=== PATIENT | female | born 1960 | race Caucasian/White ===

== ENCOUNTER 2021-09-08 22:00 | Inpatient (IN) | payer MEDICAID, OTHER ==
[~2021-09-08] VITALS: Ht 160 cm; Wt 78.0 kg
[2021-09-08] MEDS ORDERED: IPRATROPIUM BROM 0.5 MG/2.5ML INH SOL NEB ONE (22:45)
[2021-09-08] MEDS ORDERED: ALBUTEROL SULF 2.5 MG/0.5ML(0.5%) NEB SOLN NEB ONE (22:45)
[2021-09-08] MEDS ORDERED: methylPREDNISolone SOD SUCC 125 MG/2 ML VL IV ONE (23:00)
[2021-09-08 23:23] LABS: Basophils # (auto) 0.1 10 ^3/uL (0-0.2); Basophils % (auto) 0.4 % (0.0-2.0); Eosinophils # (auto) 0.1 10 ^3/uL (0-0.8); Eosinophils % (auto) 0.3 % (0.0-7.0); Hematocrit 34.2 % (36.0-46.0); Lymphocytes # (auto) 1.8 10 ^3/uL (0.4-5.4); Lymphocytes % (auto) 6.8 % (10.0-50.0); Mean Corpuscular Hemoglobin 27.7 pg (28.0-32.0); Mean Corpuscular Hgb Conc. 32.2 g/dL (32.0-36.0); Mean Corpuscular Volume 86.1 fL (80.0-100.0); Monocytes # (auto) 1.7 10 ^3/uL (0-1.3); Monocytes % (auto) 6.4 % (0.0-12.0); Neutrophils # (auto) 23.1 10 ^3/uL (1.6-8.6); Neutrophils % (auto) 86.1 % (37.0-80.0); Red Blood Cells 3.97 10^6/uL (4.0-5.20); Red Cell Distribution Width 15.7 % (11.8-14.3); White Blood Cell 26.8 10^3/uL (4.4-10.8)
[2021-09-08 23:38] LABS: Alanine Aminotransferase 24 U/L (13-56); Albumin 2.6 g/dL (3.4-5.0); Aspartate Aminotransferase 18 U/L (15-37); Blood Urea Nitrogen 23 mg/dL (7-18); Calcium 8.8 mg/dL (8.5-10.1); Chloride 92 mmol/L (98-107); GFR African American 161 mL/min; GFR Non-African American 133 mL/min; Glucose 143 mg/dL (74-106); Magnesium 2.5 mg/dL (1.6-2.6); Potassium 4.2 mmol/L (3.5-5.1); Sodium 143 mmol/L (136-145)
[2021-09-08 23:43] LABS: Alkaline Phosphatase 79 U/L (45-117); Bilirubin, Total 0.2 mg/dL (0.2-1.0); Total Protein 6.7 g/dL (6.4-8.2)
[2021-09-09] VITALS (10 sets, daily range): BP systolic 98–120; BP diastolic 43–76
[2021-09-09 00:03] LABS: Anion Gap 5.99999 (5-15); Carbon Dioxide > 45 mmol/L (21-32)
[2021-09-09] MEDS ORDERED: cefTRIAXone SOD 1,000 MG VL IV ONE (00:15)
[2021-09-09] MEDS ORDERED: IPRATROPIUM BROM 0.5 MG/2.5ML INH SOL NEB ONE (00:15)
[2021-09-09] MEDS ORDERED: IOHEXOL 350 MG/ML 100ML IJ ONE (00:50)
[2021-09-09] MEDS ORDERED: SODIUM CHLORIDE 0.9% 1,000 ML IV ONE (01:15)
[2021-09-09 01:56] LABS: Urine Bacteria NONE SEEN /hpf (None Seen); Urine Blood Negative /uL (Negative); Urine Mucus FEW (None Seen); Urine Specific Gravity 1.016 (1.001-1.035); Urine WBC 2 /hpf (0 - 5)
[2021-09-09] MEDS ORDERED: DOCUSATE SOD 100 MG CAP PO PRN (06:45)
[2021-09-09] MEDS ORDERED: HYDROcodone-ACET 5/325MG TAB PO PRN (06:45)
[2021-09-09] MEDS ORDERED: ONDANSETRON HCL 4 MG/2 ML VIAL IV PRN (06:45)
[2021-09-09] MEDS ORDERED: DEXTROSE (50%) 50ML SYRG IV PRN (06:45)
[2021-09-09 07:11] LABS: Hematocrit 34.8 % (36.0-46.0); Hemoglobin 11.2 g/dL (12.2-16.2); Mean Corpuscular Hemoglobin 27.9 pg (28.0-32.0); Mean Corpuscular Hgb Conc. 32.2 g/dL (32.0-36.0); Mean Corpuscular Volume 86.7 fL (80.0-100.0); Red Blood Cells 4.01 10^6/uL (4.0-5.20); Red Cell Distribution Width 15.5 % (11.8-14.3); White Blood Cell 24.2 10^3/uL (4.4-10.8)
[2021-09-09 07:17] LABS: Basophils % (manual) 0 (0.0-2.0); Blast Cells 0; Eosinophils % (manual) 0 (0-7); Metamyelocytes % 0; Myelocytes % 0; Promyelocytes % 0; Reactive Lymphocytes 0
[2021-09-09 07:29] LABS: Alanine Aminotransferase 28 U/L (13-56); Albumin 2.4 g/dL (3.4-5.0); Aspartate Aminotransferase 19 U/L (15-37); BUN/Creatinine Ratio 46.8; Blood Urea Nitrogen 22 mg/dL (7-18); Calcium 8.6 mg/dL (8.5-10.1); Chloride 97 mmol/L (98-107); GFR African American 173 mL/min; GFR Non-African American 143 mL/min; Glucose 152 mg/dL (74-106); Potassium 4.9 mmol/L (3.5-5.1); Sodium 146 mmol/L (136-145)
[2021-09-09] MEDS ORDERED: NITROGLYCERIN 0.4 MG SL TAB SL PRN (07:30)
[2021-09-09] MEDS ORDERED: MORPHINE SULFATE INJECTION 2 MG/ML SYRG IV PRN (07:30)
[2021-09-09 07:31] LABS: Alkaline Phosphatase 79 U/L (45-117); Anion Gap 3.99999 (5-15); Bilirubin, Total 0.2 mg/dL (0.2-1.0); Total Protein 6.8 g/dL (6.4-8.2)
[2021-09-09 07:33] LABS: Carbon Dioxide > 45 mmol/L (21-32)
[2021-09-09] MEDS: InsuLIN REG 1unit/0.01ml Soln (100units/ml) SC SCH ×4 (07:52→21:40)
[2021-09-09] MEDS: ACCU-CHEK COMFORT CURVE STRIP VI SCH ×4 (07:52→21:40)
[2021-09-09 08:19] LABS: Band Neutrophils % (manual) 25; Lymphocytes % (manual) 2 (10.0-50.0); Monocytes % (manual) 5 (0-12)
[2021-09-09] MEDS: HEPARIN SODIUM (PORCINE) 5000 UNITS/ML 1ML VIAL SC SCH ×2 (09:51→21:40)
[2021-09-09] MEDS: FAMOTIDINE (10MG/ML) 2ML VL IV SCH ×2 (09:53→21:39)
[2021-09-09] MEDS: ACETYLCYSTEINE 10 %(100MG/ML) SOL 4ML NEB SCH ×2 (12:00→17:01)
[2021-09-09] MEDS: ALBUTEROL SULF 2.5 MG/0.5ML(0.5%) NEB SOLN NEB SCH ×2 (12:00→17:00)
[2021-09-09] MEDS: IPRATROPIUM BROM 0.5 MG/2.5ML INH SOL NEB SCH ×2 (12:00→17:00)
[2021-09-09] MEDS ORDERED: LORazepam 2MG/ML-1ML VIAL IV PRN (13:45)
[2021-09-09] MEDS ORDERED: HALOPERIDOL LACTATE 5 MG/ML INJ VIAL IM PRN (13:45)
[2021-09-09] MEDS ORDERED: methylPREDNISolone SOD SUCC 40 MG/ML VL IV SCH (14:00)
[2021-09-09] MEDS: SODIUM CHLOR 0.9% PF (SALINE LOCK) 10ML VIAL/SYR IV SCH ×2 (16:45→21:39)
[2021-09-09] MEDS: DOXYCYCLINE 100MG/250ML 250 ML IV SCH ×2 (16:46→17:30)
[2021-09-09] MEDS ORDERED: ALBU108A14 IN (18:19)
[2021-09-09] MEDS ORDERED: CARV6.2551 PO (18:19)
[2021-09-09] MEDS ORDERED: DOCU100T15 PO (18:19)
[2021-09-09] MEDS ORDERED: LISI-275 PO (18:19)
[2021-09-09] MEDS ORDERED: BUDE1AER4 IN (18:19)
[2021-09-09] MEDS ORDERED: LEVEMIR SC (18:35)
[2021-09-10] VITALS (15 sets, daily range): BP systolic 110–134; BP diastolic 38–79
[2021-09-10] MEDS: ALBUTEROL SULF 2.5 MG/0.5ML(0.5%) NEB SOLN NEB SCH ×5 (00:46→23:45)
[2021-09-10] MEDS: IPRATROPIUM BROM 0.5 MG/2.5ML INH SOL NEB SCH ×5 (00:46→23:45)
[2021-09-10] MEDS: ACETYLCYSTEINE 10 %(100MG/ML) SOL 4ML NEB SCH ×5 (00:46→23:45)
[2021-09-10] MEDS: DOXYCYCLINE 100MG/250ML 250 ML IV SCH ×2 (03:15→14:32)
[2021-09-10] MEDS: methylPREDNISolone SOD SUCC 40 MG/ML VL IV SCH ×2 (03:54→14:32)
[2021-09-10 05:43] LABS: Basophils # (auto) 0 10 ^3/uL (0-0.2); Basophils % (auto) 0.2 % (0.0-2.0); Eosinophils # (auto) 0 10 ^3/uL (0-0.8); Eosinophils % (auto) 0.1 % (0.0-7.0); Hematocrit 29.6 % (36.0-46.0); Hemoglobin 9.9 g/dL (12.2-16.2); Lymphocytes # (auto) 2.1 10 ^3/uL (0.4-5.4); Lymphocytes % (auto) 15.8 % (10.0-50.0); Mean Corpuscular Hemoglobin 28.1 pg (28.0-32.0); Mean Corpuscular Hgb Conc. 33.3 g/dL (32.0-36.0); Mean Corpuscular Volume 84.4 fL (80.0-100.0); Monocytes % (auto) 7.2 % (0.0-12.0); Neutrophils # (auto) 10.4 10 ^3/uL (1.6-8.6); Neutrophils % (auto) 76.7 % (37.0-80.0); Nucleated Red Blood Cells % 0.2 %; Red Blood Cells 3.51 10^6/uL (4.0-5.20); Red Cell Distribution Width 15.7 % (11.8-14.3); White Blood Cell 13.6 10^3/uL (4.4-10.8)
[2021-09-10] MEDS: SODIUM CHLOR 0.9% PF (SALINE LOCK) 10ML VIAL/SYR IV SCH ×3 (05:44→21:30)
[2021-09-10 06:15] LABS: Albumin 2.3 g/dL (3.4-5.0); Calcium 8.8 mg/dL (8.5-10.1); Potassium 4.4 mmol/L (3.5-5.1)
[2021-09-10 06:18] LABS: BUN/Creatinine Ratio 54.3; Bilirubin, Total 0.3 mg/dL (0.2-1.0); Total Protein 6.4 g/dL (6.4-8.2)
[2021-09-10] MEDS: InsuLIN REG 1unit/0.01ml Soln (100units/ml) SC SCH ×4 (06:39→21:34)
[2021-09-10] MEDS: ACCU-CHEK COMFORT CURVE STRIP VI SCH ×4 (06:39→21:35)
[2021-09-10] MEDS ORDERED: LORazepam 2MG/ML-1ML VIAL IV PRN (09:00)
[2021-09-10] MEDS: FAMOTIDINE (10MG/ML) 2ML VL IV SCH ×2 (09:10→21:30)
[2021-09-10] MEDS: cefTRIAXone 1GM/50ML D5W 50 ML IV SCH (09:13)
[2021-09-10] MEDS: HEPARIN SODIUM (PORCINE) 5000 UNITS/ML 1ML VIAL SC SCH (09:13)
[2021-09-10] MEDS: SODIUM CHLORIDE 0.9% 1,000 ML IV SCH (09:46)
[2021-09-10] MEDS ORDERED: LORazepam 0.5 MG TAB PO PRN (12:45)
[2021-09-10] MEDS: guaiFENesin-DM 100/10mg/5ml SYR PO PRN (15:22)
[2021-09-11] VITALS (12 sets, daily range): BP systolic 105–154; BP diastolic 51–75
[2021-09-11] MEDS: methylPREDNISolone SOD SUCC 40 MG/ML VL IV SCH ×2 (02:00→14:08)
[2021-09-11] MEDS: DOXYCYCLINE 100MG/250ML 250 ML IV SCH ×2 (03:15→14:25)
[2021-09-11] MEDS: IPRATROPIUM BROM 0.5 MG/2.5ML INH SOL NEB SCH ×3 (05:40→19:14)
[2021-09-11] MEDS: ACETYLCYSTEINE 10 %(100MG/ML) SOL 4ML NEB SCH (05:40)
[2021-09-11] MEDS: ALBUTEROL SULF 2.5 MG/0.5ML(0.5%) NEB SOLN NEB SCH ×3 (05:40→19:14)
[2021-09-11] MEDS: SODIUM CHLORIDE 0.9% 1,000 ML IV SCH (05:45)
[2021-09-11] MEDS: SODIUM CHLOR 0.9% PF (SALINE LOCK) 10ML VIAL/SYR IV SCH ×3 (06:00→22:07)
[2021-09-11] MEDS: InsuLIN REG 1unit/0.01ml Soln (100units/ml) SC SCH ×4 (06:44→22:11)
[2021-09-11] MEDS: ACCU-CHEK COMFORT CURVE STRIP VI SCH ×4 (06:45→22:27)
[2021-09-11] MEDS: THROAT LOZENGES(CEPASTAT) MT PRN ×2 (06:47→17:06)
[2021-09-11] MEDS: cefTRIAXone 1GM/50ML D5W 50 ML IV SCH (09:24)
[2021-09-11] MEDS: ENOXAPARIN SOD 40 MG/0.4 ML SYRINGE SC SCH (09:25)
[2021-09-11] MEDS: FAMOTIDINE (10MG/ML) 2ML VL IV SCH (09:25)
[2021-09-11 09:43] LABS: Basophils # (auto) 0 10 ^3/uL (0-0.2); Basophils % (auto) 0.3 % (0.0-2.0); Eosinophils # (auto) 0 10 ^3/uL (0-0.8); Eosinophils % (auto) 0.4 % (0.0-7.0); Hematocrit 32.1 % (36.0-46.0); Hemoglobin 11.3 g/dL (12.2-16.2); Lymphocytes # (auto) 0.7 10 ^3/uL (0.4-5.4); Lymphocytes % (auto) 9.1 % (10.0-50.0); Mean Corpuscular Hemoglobin 29.1 pg (28.0-32.0); Mean Corpuscular Hgb Conc. 35.2 g/dL (32.0-36.0); Mean Corpuscular Volume 82.6 fL (80.0-100.0); Monocytes # (auto) 0.3 10 ^3/uL (0-1.3); Monocytes % (auto) 3.8 % (0.0-12.0); Neutrophils # (auto) 6.3 10 ^3/uL (1.6-8.6); Neutrophils % (auto) 86.4 % (37.0-80.0); Nucleated Red Blood Cells % 0.3 %; Red Blood Cells 3.88 10^6/uL (4.0-5.20); Red Cell Distribution Width 15.4 % (11.8-14.3); White Blood Cell 7.3 10^3/uL (4.4-10.8)
[2021-09-11 09:55] LABS: Calcium 9.1 mg/dL (8.5-10.1); Potassium 4.5 mmol/L (3.5-5.1)
[2021-09-11] MEDS ORDERED: INSULIN LANTUS (GLARGINE) 1 /0.01ml (100units/ml) SC ONE (13:00)
[2021-09-11] MEDS: guaiFENesin-DM 100/10mg/5ml SYR PO PRN (17:05)
[2021-09-11] MEDS: FAMOTIDINE 20 MG TAB PO SCH (22:07)
[2021-09-12] VITALS (9 sets, daily range): BP systolic 101–134; BP diastolic 42–80
[2021-09-12] MEDS: IPRATROPIUM BROM 0.5 MG/2.5ML INH SOL NEB SCH ×4 (00:23→19:54)
[2021-09-12] MEDS: ALBUTEROL SULF 2.5 MG/0.5ML(0.5%) NEB SOLN NEB SCH ×4 (00:23→19:54)
[2021-09-12] MEDS: ACETAMINOPHEN 325 MG TAB PO PRN ×2 (01:32→09:27)
[2021-09-12] MEDS: guaiFENesin-DM 100/10mg/5ml SYR PO PRN ×2 (01:32→21:27)
[2021-09-12] MEDS: methylPREDNISolone SOD SUCC 40 MG/ML VL IV SCH (03:41)
[2021-09-12] MEDS: DOXYCYCLINE 100MG/250ML 250 ML IV SCH ×2 (03:41→15:50)
[2021-09-12] MEDS: SODIUM CHLOR 0.9% PF (SALINE LOCK) 10ML VIAL/SYR IV SCH ×3 (06:31→21:18)
[2021-09-12] MEDS: InsuLIN REG 1unit/0.01ml Soln (100units/ml) SC SCH ×4 (06:32→21:25)
[2021-09-12] MEDS: ACCU-CHEK COMFORT CURVE STRIP VI SCH ×4 (06:34→21:18)
[2021-09-12] MEDS: THROAT LOZENGES(CEPASTAT) MT PRN (06:34)
[2021-09-12] MEDS: FAMOTIDINE 20 MG TAB PO SCH ×2 (09:27→21:26)
[2021-09-12] MEDS: cefTRIAXone 1GM/50ML D5W 50 ML IV SCH (09:28)
[2021-09-12] MEDS: ENOXAPARIN SOD 40 MG/0.4 ML SYRINGE SC SCH (09:28)
[2021-09-12] MEDS: INSULIN LANTUS (GLARGINE) 1 /0.01ml (100units/ml) SC SCH ×2 (09:48→21:26)
[2021-09-12] MEDS: predniSONE 20 MG TAB PO SCH (11:15)
[2021-09-12] MEDS: FLUTICASONE PROP NASAL SPR 0.05 % (50MCG) 16GM SCH ×2 (11:16→23:06)
[2021-09-13] MEDS: ALBUTEROL SULF 2.5 MG/0.5ML(0.5%) NEB SOLN NEB SCH ×5 (00:51→23:41)
[2021-09-13] MEDS: IPRATROPIUM BROM 0.5 MG/2.5ML INH SOL NEB SCH ×5 (00:51→23:41)
[2021-09-13] MEDS: DOXYCYCLINE 100MG/250ML 250 ML IV SCH ×2 (02:56→14:45)
[2021-09-13 05:00] VITALS: BP 135/75
[2021-09-13] MEDS: ACCU-CHEK COMFORT CURVE STRIP VI SCH ×4 (06:04→22:23)
[2021-09-13] MEDS: SODIUM CHLOR 0.9% PF (SALINE LOCK) 10ML VIAL/SYR IV SCH ×3 (06:04→22:22)
[2021-09-13] MEDS: InsuLIN REG 1unit/0.01ml Soln (100units/ml) SC SCH ×4 (06:04→22:00)
[2021-09-13] MEDS: THROAT LOZENGES(CEPASTAT) MT PRN (06:14)
[2021-09-13] MEDS: cefTRIAXone 1GM/50ML D5W 50 ML IV SCH (08:17)
[2021-09-13 08:38] VITALS: BP 128/78
[2021-09-13] MEDS: predniSONE 20 MG TAB PO SCH (08:41)
[2021-09-13] MEDS: FLUTICASONE PROP NASAL SPR 0.05 % (50MCG) 16GM SCH ×2 (08:41→22:00)
[2021-09-13] MEDS: ENOXAPARIN SOD 40 MG/0.4 ML SYRINGE SC SCH (08:41)
[2021-09-13] MEDS: FAMOTIDINE 20 MG TAB PO SCH ×2 (08:41→22:23)
[2021-09-13] MEDS: INSULIN LANTUS (GLARGINE) 1 /0.01ml (100units/ml) SC SCH ×2 (08:42→22:25)
[2021-09-13 12:38] VITALS: BP 156/72
[2021-09-13 16:57] VITALS: BP 144/67
[2021-09-13 22:00] VITALS: BP 127/60
[2021-09-13] MEDS: CARVEDILOL 3.125 MG TAB PO SCH (22:23)
[2021-09-14] MEDS: DOXYCYCLINE 100MG/250ML 250 ML IV SCH ×2 (02:46→15:00)
[2021-09-14 05:00] VITALS: BP 121/64
[2021-09-14] MEDS: SODIUM CHLOR 0.9% PF (SALINE LOCK) 10ML VIAL/SYR IV SCH ×3 (05:33→22:16)
[2021-09-14 06:18] LABS: Hematocrit 32.7 % (36.0-46.0); Mean Corpuscular Hemoglobin 27.9 pg (28.0-32.0); Mean Corpuscular Hgb Conc. 33.8 g/dL (32.0-36.0); Mean Corpuscular Volume 82.4 fL (80.0-100.0); Red Blood Cells 3.96 10^6/uL (4.0-5.20); Red Cell Distribution Width 15.9 % (11.8-14.3); White Blood Cell 12.6 10^3/uL (4.4-10.8)
[2021-09-14 06:24] LABS: BUN/Creatinine Ratio 44.2; Blood Urea Nitrogen 19 mg/dL (7-18); Calcium 8.7 mg/dL (8.5-10.1); Chloride 94 mmol/L (98-107); GFR African American 192 mL/min; GFR Non-African American 159 mL/min; Glucose 90 mg/dL (74-106); Potassium 3.8 mmol/L (3.5-5.1); Sodium 142 mmol/L (136-145)
[2021-09-14] MEDS: ACCU-CHEK COMFORT CURVE STRIP VI SCH ×4 (06:26→22:21)
[2021-09-14] MEDS: InsuLIN REG 1unit/0.01ml Soln (100units/ml) SC SCH ×4 (06:26→22:20)
[2021-09-14 06:36] LABS: Basophils % (manual) 0 (0.0-2.0); Blast Cells 0; Metamyelocytes % 0; Myelocytes % 0; Promyelocytes % 0; Reactive Lymphocytes 0
[2021-09-14 06:58] LABS: Carbon Dioxide 50 mmol/L (21-32)
[2021-09-14 07:02] LABS: Band Neutrophils % (manual) 10; Eosinophils % (manual) 1 (0-7); Lymphocytes % (manual) 23 (10.0-50.0); Monocytes % (manual) 4 (0-12)
[2021-09-14 08:30] VITALS: BP 109/53
[2021-09-14] MEDS: cefTRIAXone 1GM/50ML D5W 50 ML IV SCH (09:26)
[2021-09-14] MEDS: FLUTICASONE PROP NASAL SPR 0.05 % (50MCG) 16GM SCH ×2 (09:30→22:00)
[2021-09-14] MEDS: FAMOTIDINE 20 MG TAB PO SCH ×2 (09:30→22:18)
[2021-09-14] MEDS: ASPirin 81 mg TAB PO SCH (09:31)
[2021-09-14] MEDS: predniSONE 20 MG TAB PO SCH (09:31)
[2021-09-14] MEDS: CARVEDILOL 3.125 MG TAB PO SCH ×2 (09:35→22:19)
[2021-09-14] MEDS: ENOXAPARIN SOD 40 MG/0.4 ML SYRINGE SC SCH (09:36)
[2021-09-14] MEDS: INSULIN LANTUS (GLARGINE) 1 /0.01ml (100units/ml) SC SCH ×2 (09:39→22:21)
[2021-09-14] MEDS: ALBUTEROL SULF 2.5 MG/0.5ML(0.5%) NEB SOLN NEB SCH ×4 (09:49→23:59)
[2021-09-14] MEDS: IPRATROPIUM BROM 0.5 MG/2.5ML INH SOL NEB SCH ×4 (09:49→23:59)
[2021-09-14 11:45] VITALS: BP 117/63
[2021-09-14] MEDS ORDERED: FUROSEMIDE 20 MG TAB PO ONE (14:00)
[2021-09-14] MEDS: THROAT LOZENGES(CEPASTAT) MT PRN (16:27)
[2021-09-14 16:40] VITALS: BP 122/59
[2021-09-14 20:00] VITALS: BP 127/63
[2021-09-14] MEDS: ACETAMINOPHEN 325 MG TAB PO PRN (20:33)
[2021-09-14 21:42] VITALS: BP 127/63
[2021-09-15] VITALS (7 sets, daily range): BP systolic 110–128; BP diastolic 49–64
[2021-09-15] MEDS: DOXYCYCLINE 100MG/250ML 250 ML IV SCH ×2 (03:42→13:52)
[2021-09-15] MEDS: SODIUM CHLOR 0.9% PF (SALINE LOCK) 10ML VIAL/SYR IV SCH ×3 (05:58→22:18)
[2021-09-15] MEDS: ALBUTEROL SULF 2.5 MG/0.5ML(0.5%) NEB SOLN NEB SCH ×3 (06:27→17:28)
[2021-09-15] MEDS: IPRATROPIUM BROM 0.5 MG/2.5ML INH SOL NEB SCH ×3 (06:27→17:28)
[2021-09-15] MEDS: ACCU-CHEK COMFORT CURVE STRIP VI SCH ×4 (06:31→22:19)
[2021-09-15] MEDS: InsuLIN REG 1unit/0.01ml Soln (100units/ml) SC SCH ×4 (06:31→22:32)
[2021-09-15] MEDS: ACETAMINOPHEN 325 MG TAB PO PRN ×2 (07:29→22:19)
[2021-09-15] MEDS: cefTRIAXone 1GM/50ML D5W 50 ML IV SCH (09:00)
[2021-09-15] MEDS: CARVEDILOL 3.125 MG TAB PO SCH ×2 (09:43→22:19)
[2021-09-15] MEDS: ASPirin 81 mg TAB PO SCH (09:51)
[2021-09-15] MEDS: FUROSEMIDE 20 MG TAB PO SCH (09:51)
[2021-09-15] MEDS: predniSONE 20 MG TAB PO SCH (09:51)
[2021-09-15] MEDS: FAMOTIDINE 20 MG TAB PO SCH ×2 (09:52→22:19)
[2021-09-15] MEDS: ENOXAPARIN SOD 40 MG/0.4 ML SYRINGE SC SCH (09:52)
[2021-09-15] MEDS: INSULIN LANTUS (GLARGINE) 1 /0.01ml (100units/ml) SC SCH ×2 (09:58→22:00)
[2021-09-15] MEDS: FLUTICASONE PROP NASAL SPR 0.05 % (50MCG) 16GM SCH ×2 (10:00→22:00)
[2021-09-15] MEDS: IPRATROPIUM BROM 0.5 MG/2.5ML INH SOL NEB PRN (21:33)
[2021-09-15] MEDS: ALBUTEROL SULF 2.5 MG/0.5ML(0.5%) NEB SOLN NEB PRN (21:33)
[2021-09-16] MEDS: DOXYCYCLINE 100MG/250ML 250 ML IV SCH (02:40)
[2021-09-16] MEDS: guaiFENesin-DM 100/10mg/5ml SYR PO PRN ×2 (02:44→20:57)
[2021-09-16 05:00] VITALS: BP 119/62
[2021-09-16] MEDS: IPRATROPIUM BROM 0.5 MG/2.5ML INH SOL NEB SCH ×4 (05:46→21:32)
[2021-09-16] MEDS: ALBUTEROL SULF 2.5 MG/0.5ML(0.5%) NEB SOLN NEB SCH ×4 (05:46→21:32)
[2021-09-16] MEDS: SODIUM CHLOR 0.9% PF (SALINE LOCK) 10ML VIAL/SYR IV SCH ×3 (06:25→21:18)
[2021-09-16] MEDS: ACCU-CHEK COMFORT CURVE STRIP VI SCH ×4 (06:25→22:21)
[2021-09-16] MEDS: InsuLIN REG 1unit/0.01ml Soln (100units/ml) SC SCH ×4 (06:32→22:23)
[2021-09-16 08:30] VITALS: BP 116/58
[2021-09-16] MEDS: cefTRIAXone 1GM/50ML D5W 50 ML IV SCH (09:00)
[2021-09-16] MEDS: IPRATROPIUM BROM 0.5 MG/2.5ML INH SOL NEB PRN (09:37)
[2021-09-16] MEDS: ALBUTEROL SULF 2.5 MG/0.5ML(0.5%) NEB SOLN NEB PRN (09:37)
[2021-09-16] MEDS: THROAT LOZENGES(CEPASTAT) MT PRN (09:53)
[2021-09-16] MEDS: FLUTICASONE PROP NASAL SPR 0.05 % (50MCG) 16GM SCH ×2 (09:54→22:19)
[2021-09-16] MEDS: CARVEDILOL 3.125 MG TAB PO SCH ×2 (10:00→22:19)
[2021-09-16] MEDS: FUROSEMIDE 20 MG TAB PO SCH (10:00)
[2021-09-16] MEDS: ASPirin 81 mg TAB PO SCH (10:00)
[2021-09-16] MEDS: INSULIN LANTUS (GLARGINE) 1 /0.01ml (100units/ml) SC SCH ×2 (10:00→22:22)
[2021-09-16] MEDS: predniSONE 20 MG TAB PO SCH (10:00)
[2021-09-16] MEDS: ENOXAPARIN SOD 40 MG/0.4 ML SYRINGE SC SCH (10:00)
[2021-09-16] MEDS: FAMOTIDINE 20 MG TAB PO SCH ×2 (10:00→22:20)
[2021-09-16 17:00] VITALS: BP 122/66
[2021-09-16 20:00] VITALS: BP 120/54
[2021-09-16] MEDS: ACETAMINOPHEN 325 MG TAB PO PRN (20:57)
[2021-09-16 22:00] VITALS: BP 120/54
[2021-09-16] MEDS: DOXYCYCLINE 100 MG TAB/CAP PO SCH (22:20)
[2021-09-17 05:00] VITALS: BP 128/63
[2021-09-17] MEDS: SODIUM CHLOR 0.9% PF (SALINE LOCK) 10ML VIAL/SYR IV SCH ×2 (05:34→14:00)
[2021-09-17] MEDS: InsuLIN REG 1unit/0.01ml Soln (100units/ml) SC SCH ×3 (06:14→16:58)
[2021-09-17] MEDS: ACCU-CHEK COMFORT CURVE STRIP VI SCH ×3 (06:14→17:00)
[2021-09-17] MEDS: ALBUTEROL SULF 2.5 MG/0.5ML(0.5%) NEB SOLN NEB SCH ×2 (06:44→11:28)
[2021-09-17] MEDS: IPRATROPIUM BROM 0.5 MG/2.5ML INH SOL NEB SCH ×2 (06:44→11:28)
[2021-09-17 08:00] VITALS: BP 122/52
[2021-09-17] MEDS: cefTRIAXone 1GM/50ML D5W 50 ML IV SCH (09:00)
[2021-09-17] MEDS: FLUTICASONE PROP NASAL SPR 0.05 % (50MCG) 16GM SCH (10:00)
[2021-09-17] MEDS: predniSONE 20 MG TAB PO SCH (10:00)
[2021-09-17] MEDS: ASPirin 81 mg TAB PO SCH (10:00)
[2021-09-17] MEDS: FUROSEMIDE 20 MG TAB PO SCH (10:00)
[2021-09-17] MEDS: FAMOTIDINE 20 MG TAB PO SCH (10:00)
[2021-09-17] MEDS: INSULIN LANTUS (GLARGINE) 1 /0.01ml (100units/ml) SC SCH (10:00)
[2021-09-17] MEDS: ENOXAPARIN SOD 40 MG/0.4 ML SYRINGE SC SCH (10:00)
[2021-09-17] MEDS: CARVEDILOL 3.125 MG TAB PO SCH (10:00)
[2021-09-17] MEDS: DOXYCYCLINE 100 MG TAB/CAP PO SCH (10:00)
[2021-09-17 12:00] VITALS: BP 124/50
[2021-09-17 12:05] VITALS: BP 122/52
[2021-09-17 16:00] VITALS: BP 137/76
== END 2021-09-17 18:05 | disposition home or self-care (01) | DRG 720 ==
LOC: EDBD 22:00 → ER 22:04 → TELE 09-09 07:25 → DOU IN ICU 09-09 12:39 → TELE-WESTW 09-12 14:15
PROVIDERS: ADMIT Nurse Practitioner Family; ATTEND Internal Medicine
PROC: 5A09357 Assistance with Respiratory Ventilation, Less than 24 Consecutive Hours, Continuous Positive Airway Pressure (ICD-10-PCS; principal; 2021-09-09)
DX: A41.9 Sepsis, unspecified organism (principal); J96.21 Acute and chronic respiratory failure with hypoxia; G93.41 Metabolic encephalopathy; J18.9 Pneumonia, unspecified organism; J44.0 Chronic obstructive pulmonary disease with (acute) lower respiratory infection; E88.09 Other disorders of plasma-protein metabolism, not elsewhere classified; J44.1 Chronic obstructive pulmonary disease with (acute) exacerbation; E11.65 Type 2 diabetes mellitus with hyperglycemia; F41.9 Anxiety disorder, unspecified; I25.10 Atherosclerotic heart disease of native coronary artery without angina pectoris; J96.22 Acute and chronic respiratory failure with hypercapnia; J98.11 Atelectasis; Z20.822 Contact with and (suspected) exposure to COVID-19; Z82.49 Family history of ischemic heart disease and other diseases of the circulatory system; I25.2 Old myocardial infarction; Z82.5 Family history of asthma and other chronic lower respiratory diseases; Z87.891 Personal history of nicotine dependence; Z95.1 Presence of aortocoronary bypass graft; Z95.2 Presence of prosthetic heart valve; Z71.6 Tobacco abuse counseling
CPT/HCPCS: 36415; 36600; 71045; 71275; 80048; 80053; 81001; 82805; 82962; 83036; 83605; 83735; 83880; 84484; 85007; 85025; 85027; 87040; 87070; 87081; 87086; 87205; 93005; 93306; 94640; 94660; 96361; 96374; 97110; 97116; 97163; 97530; 99291; G0378; J0696; J1815; J3490